=== PATIENT | male | born 1975 | race Hispanic/Latino ===

== ENCOUNTER 2022-08-13 09:56 | Emergency (ER) | payer BC ==
[2022-08-13] MEDS ORDERED: dexAMETHasone 10 MG/ML VIAL ONE (10:29)
[2022-08-13] MEDS ORDERED: KETOROLAC 30 MG/ML INJ ONE (10:29)
[2022-08-13 10:58] LABS: Absolute Lymphocytes (CBC) 1.6 K/uL (0.7-4.9); Hematocrit 43.7 % (39.6-49.0); MCV 95.9 fL (80-100); MPV 8.2 fL (7.6-11.3); RBC Red Blood Cell Count 4.56 M/uL (4.33-5.43)
[2022-08-13 11:15] LABS: Uric Acid 6.4 mg/dL (3.5-7.2)
--- NOTE | 2022-08-13 11:58 | ER ---
Nurse's Notes [facility] Name: Elliot Alexander Age: 47 yrs Sex: Male : 1975 Arrival Date: 08/13/2022 Time: 09:58 Bed 19 Private MD: Diagnosis: Pain in right foot Presentation: 08/13 10:02 Chief complaint: Patient states: pain, redness to right foot X 1 month, he was seen by iw a foot doctor and was put on allopurinol and indomethacin and it has not gotten better. Coronavirus screen: At this time, the client does not indicate any symptoms associated with coronavirus-19. Ebola Screen: Patient negative for fever greater than or equal to 101.5 degrees Fahrenheit, and additional compatible Ebola Virus Disease symptoms Patient denies exposure to infectious person. Patient denies travel to an Ebola-affected area in the 21 days before illness onset. No symptoms or risks identified at this time. Initial Sepsis Screen: Does the patient meet any 2 criteria? No. Patient's initial sepsis screen is negative. Does the patient have a suspected source of infection? No. Patient's initial sepsis screen is negative. Risk Assessment: Do you want to hurt yourself or someone else? Patient reports no desire to harm self or others. Onset of symptoms was June 2022. 10:02 Method Of Arrival: Wheelchair iw 10:02 Acuity: LULA 4 iw 11:21 Acuity: LULA 3 iw Historical: - Allergies: 10:04 No Known Allergies; iw - Home Meds: 10:04 None [Active]; iw - PMHx: 10:04 None; iw - PSHx: 10:04 left ankle; iw - Immunization history:: Adult Immunizations not up to date. - Social history:: Smoking status: unknown. Screenin:47 [facility] ED Fall Risk Assessment (Adult) History of falling in the last 3 months, kr3 including since admission No falls in past 3 months (0 pts) Confusion or Disorientation No (0 pts) Intoxicated or Sedated No (0 pts) Impaired Gait Yes (1 pt) Mobility Assist Device Used Yes (1 pt) Altered Elimination No (0 pt) Score/Fall Risk Level 0 - 2 = Low Risk Oriented to surroundings, Maintained a safe environment, Educated pt \T\ family on fall prevention, incl call for assistance when getting out of bed, Assessed \T\ reinforced patient's understanding of fall precautions, Hourly rounding (assess needs \T\ fall precautionary measures) done. Abuse screen: Denies threats or abuse. Nutritional screening: No deficits noted. Tuberculosis screening: No symptoms or risk factors identified. Assessment: 10:42 General: Appears in no apparent distress. uncomfortable, Behavior is calm, cooperative, kr3 appropriate for age. Pain: Complains of pain in right foot. Neuro: Level of Consciousness is awake, alert, obeys commands, Oriented to person, place, time, situation. Cardiovascular: Patient's skin is warm and dry. Respiratory: Airway is patent Respiratory effort is even, unlabored, Respiratory pattern is regular, symmetrical. GI: No signs and/or symptoms were reported involving the gastrointestinal system. : No signs and/or symptoms were reported regarding the genitourinary system. EENT: No signs and/or symptoms were reported regarding the EENT system. Derm: No signs and/or symptoms reported regarding the dermatologic system. Musculoskeletal: Reports pain in right foot. Vital Signs: 10:02 BP 126 / 87; Pulse 79; Resp 16; Temp 98.0(TE); Pulse Ox 100% on R/A; Weight 95.25 kg; iw Height 5 ft. 8 in. (172.72 cm); Pain 10/10; 10:02 Body Mass Index 31.93 (95.25 kg, 172.72 cm) ED Course: 09:58 Patient arrived in ED. as 09:58 Cassius Barnes PA is [facility] 09:58 Reji Garcia MD is Attending Physician. [facility] 10:04 Triage completed. iw 10:04 Arm band placed on. iw 10:05 Bed in low position. Call light in reach. Side rails up X 1. kr3 10:21 Lavern Daniel, KALEN is Primary Nurse. kr3 10:41 Inserted saline lock: 22 gauge in right antecubital area, using aseptic technique. kr3 Blood collected. 12:15 IV discontinued, intact, bleeding controlled, No redness/swelling at site. Pressure kr3 dressing applied. 13:47 No provider procedures requiring assistance completed. kr3 Administered Medications: 10:40 Drug: Ketorolac 30 mg Route: IVP; Site: right antecubital; kr3 11:15 Follow up: Response: No adverse reaction kr3 10:40 Drug: Decadron - Dexamethasone 10 mg Route: IVP; Site: right antecubital; kr3 11:15 Follow up: Response: No adverse reaction kr3 Medication: 13:49 VIS not applicable for this client. kr3 Outcome: 11:58 Discharge ordered by . cortney 12:25 Patient left the ED. kr3 13:48 Discharged to home with crutches. kr3 13:48 Condition: stable 13:48 Discharge instructions given to patient, Instructed on discharge instructions, follow up and referral plans. medication usage, Demonstrated understanding of instructions, follow-up care, medications, Prescriptions given X 2. Signatures: Cassius Barnes PA PA jmm Martinez, Amelia as Williams, Irene, Lavern Gongora RN, RN RN kr3
--- NOTE | 2022-08-13 11:58 | EDPHYS ---
Physician Documentation [facility] Name: Elliot Alexander Age: 47 yrs Sex: Male : 1975 Arrival Date: 08/13/2022 Time: 09:58 Bed 19 Private MD: ED Physician Reji Garcia HPI: 08/13 11:53 This 47 yrs old Male presents to ER via Wheelchair with complaints of Foot jmm Injury. 11:53 The patient presents with pain. The complaints affect the dorsum of right foot. Onset: jmm The symptoms/episode began/occurred just prior to arrival, 1 month(s) ago. Is a 47-year-old male with no known chronic medical conditions presents emerged part with complaints of ongoing right lower foot pain began approximately month ago. Patient was prescribed allopurinol and indomethacin by podiatry. Patient states he did not tolerate the indomethacin well and only took 1 dose. Patient is still currently taking the allopurinol with continued pain. Denies fever. Denies known injury to the extremity.. Historical: - Allergies: 10:04 No Known Allergies; iw - Home Meds: 10:04 None [Active]; iw - PMHx: 10:04 None; iw - PSHx: 10:04 left ankle; iw - Immunization history:: Adult Immunizations not up to date. - Social history:: Smoking status: unknown. ROS: 11:53 Constitutional: Negative for fever, chills, and weight loss, Cardiovascular: Negative jmm for chest pain, palpitations, and edema, Respiratory: Negative for shortness of breath, cough, wheezing, and pleuritic chest pain. 11:53 MS/extremity: Positive for pain. 11:53 All other systems are negative. Exam: 11:53 Constitutional: This is a well developed, well nourished patient who is awake, alert, jmm and in no acute distress. Head/Face: atraumatic. Eyes: EOMI, no conjunctival erythema appreciated ENT: Moist Mucus Membranes Neck: Trachea midline, Supple Chest/axilla: Normal chest wall appearance and motion. Cardiovascular: Regular rate and rhythm. No edema appreciated Respiratory: Normal respirations, no respiratory distress appreciated Abdomen/GI: Non distended Back: Normal ROM 11:53 Musculoskeletal/extremity: Swelling noted to the right foot, compartments are soft, full dorsalis pedis pulse, neurovascular tact. 11:53 Skin: Mild erythema noted to the right lower extremity, right foot. 11:53 Neuro: Orientation: is normal, Mentation: is normal, Memory: is normal. 11:53 Psych: Behavior/mood is pleasant, cooperative. Vital Signs: 10:02 BP 126 / 87; Pulse 79; Resp 16; Temp 98.0(TE); Pulse Ox 100% on R/A; Weight 95.25 kg; iw Height 5 ft. 8 in. (172.72 cm); Pain 10; 10:02 Body Mass Index 31.93 (95.25 kg, 172.72 cm) iw MDM: 10:11 Patient medically screened. [facility] 11:50 Data reviewed: vital signs, nurses notes. [facility] 11:57 Data reviewed: lab test result(s). I considered the following discharge prescriptions jm or medication management in the emergency department Medications were administered in the Emergency Department. See MAR. Test considered but Not performed: X-ray: X-ray previously done by podiatry. Counseling: I had a detailed discussion with the patient and/or guardian regarding: the historical points, exam findings, and any diagnostic results supporting the discharge/admit diagnosis, lab results, the need for outpatient follow up, to return to the emergency department if symptoms worsen or persist or if there are any questions or concerns that arise at home. ED course: Patient's pain is alleviated in the ED with IV ketorolac and dexamethasone. Patient advised to follow-up with podiatry for reevaluation otherwise given strict return precautions. Patient understood and agrees to plan of care. Patient also advised to discontinue use of allopurinol. Patient understood and agrees plan of care.. 08/13 10:20 Order name: CBC with Diff; Complete Time: 11:17 [facility] 08/13 10:20 Order name: BMP; Complete Time: 11: [facility] 08/13 10:20 Order name: Saline Lock; Complete Time: 10:41 [facility] 08/13 10:20 Order name: Uric Acid; Complete Time: 11: [facility] Administered Medications: 10:40 Drug: Ketorolac 30 mg Route: IVP; Site: right antecubital; kr3 11:15 Follow up: Response: No adverse reaction kr3 10:40 Drug: Decadron - Dexamethasone 10 mg Route: IVP; Site: right antecubital; kr3 11:15 Follow up: Response: No adverse reaction kr3 Disposition: 14:36 Co-signature as Attending Physician, Reji Garcia MD I reviewed the patient's care rt provided by the Advanced Practice Provider and agree with the diagnosis and treatment plan. Disposition Summary: 08/13/22 11:58 Discharge Ordered Location: Home [facility] Condition: Stable [facility] Diagnosis - Pain in right foot [facility] Followup: [facility] - With: Private Physician - When: 2 - 3 days - Reason: Recheck today's complaints, Continuance of care, Re-evaluation by your physician Discharge Instructions: - Discharge Summary Sheet [facility] - Gout [facility] Forms: - Medication Reconciliation Form [facility] - Thank You Letter [facility] - Antibiotic Education [facility] - Prescription Opioid Use [facility] Prescriptions: - ketorolac 10 mg Oral tablet - take 1 tablet by ORAL route every 4-6 hours for 5 days not to exceed 40mg in jmm 24hrs for up to 5 days total use; 20 tablet; Refills: 0, Product Selection Permitted - Pepcid 20 mg Oral Tablet - take 1 tablet by ORAL route every 12 hours for 10 days; 20 tablet; Refills: 0, [facility] Product Selection Permitted Signatures: Dispatcher [employer] EDCassius Moon PA PA [facility] Genesis Degroot RN RN iw Lavern Daniel RN RN kr3 Reji Garcia MD MD rt
[2022-08-13 12:50] VITALS: BP 126/87; TEMP 98; O2SAT 100
== END 2022-08-13 12:25 | disposition home or self-care (01) ==
LOC: ER 09:56
DX: M79.671 Pain in right foot (principal)
CPT/HCPCS: 85025; 80048; 36415; 84550; 96375; 96374; 99284; J1100

== ENCOUNTER 2023-05-31 12:55 | Emergency (ER) | payer OTHER ==
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
[2023-05-31] MEDS ORDERED: KETOROLAC 30 MG/ML INJ ONE (14:00)
[2023-05-31 17:36] VITALS: BP 136/93; TEMP 98.4; O2SAT 100
== END 2023-05-31 13:58 | disposition home or self-care (01) ==
LOC: ER 12:55
DX: M54.2 Cervicalgia (principal); R51.9 Headache, unspecified; M54.50 Low back pain, unspecified; V49.49XA Driver injured in collision with other motor vehicles in traffic accident, initial encounter
CPT/HCPCS: 70450; 72125; 96372; 99285

== ENCOUNTER 2024-04-22 07:00 | Emergency (ER) | payer BC ==
[2024-04-22] MEDS ORDERED: KETOROLAC 30 MG/ML INJ ONE (08:46)
[2024-04-22] MEDS ORDERED: predniSONE 20 MG TAB ONE (08:46)
--- NOTE | 2024-04-22 10:09 | RAD REPORT ---
EXAMINATION: XR RIGHT FOOT CLINICAL INDICATION: Male, 48 years old. PAIN TECHNIQUE: Multiple views of the right foot were obtained. COMPARISON: No prior exam. FINDINGS: Mild metatarsus primus adductus with hallux valgus noted. No fracture, dislocation or aggr essive bone lesion. Small erosion involving the first metatarsal head medially would be suggestive of underlying gout.
--- NOTE | 2024-04-22 10:33 | EDPHYS ---
Physician Documentation [facility] Name: Elliot Alexander Age: 48 yrs Sex: Male : 1975 Arrival Date: 04/22/2024 Time: 07:00 Bed 20 Private MD: ED Physician Rafael Alfaro HPI: 04/22 18:43 This 48 yrs old Male presents to ER via Wheelchair with complaints of Foot ms3 Pain. 18:43 48-year-old male with past medical history of gout presents to the emergency department ms3 for right foot pain that he describes as throbbing and shooting. Patient states the pain became worse yesterday afternoon. Patient states the pain is worse with touching his foot. Patient states he has dealt with this pain for the last 15 years. Patient recently 1 month ago was given gout medications for an episode. Historical: - Allergies: 07:17 No Known Allergies; iw - Home Meds: 07:17 allopurinol 100 mg oral tablet daily [Active]; iw - PMHx: 07:17 Gout; iw - PSHx: 07:17 Left ankle; iw - Immunization history:: Adult Immunizations not up to date. - Infectious Disease History:: Denies. - Social history:: Smoking status: Patient denies any tobacco usage or history of. ROS: 18:43 MS/extremity: Positive for pain, of the right foot, ms3 18:43 Constitutional: Negative for fever, and chills. Cardiovascular: Negative for chest pain, and palpitations. Respiratory: Negative for shortness of breath, cough, wheezing, and pleuritic chest pain, Abdomen/GI: Negative for abdominal pain, nausea, vomiting, diarrhea, and constipation, Exam: 18:43 Constitutional: This is a well developed, well nourished patient who is awake, alert, ms3 and in no acute distress. Cardiovascular: Regular rate and rhythm with a normal S1 and S2. No gallops, murmurs, or rubs. Normal PMI, no JVD. No pulse deficits. Respiratory: Lungs have equal breath sounds bilaterally, clear to auscultation and percussion. No rales, rhonchi or wheezes noted. No increased work of breathing, no retractions or nasal flaring. Abdomen/GI: Soft, non-tender, with normal bowel sounds. No distension or tympany. No guarding or rebound. No evidence of tenderness throughout. 18:43 Musculoskeletal/extremity: Extremities: noted in the right foot: pain, tenderness, Vital Signs: 07:16 BP 109 / 91; Pulse 56; Resp 16; Pulse Ox 100% on R/A; Weight 90.72 kg; Height 5 ft. 8 iw in. ; Pain 10/10; 08:30 BP 118 / 80; Pulse 57; Resp 18; Pulse Ox 99% on R/A; db 09:30 BP 100 / 67; Pulse 53; Resp 18; Pulse Ox 97% on R/A; db 11:00 BP 101 / 80; Pulse 56; Resp 18; Pulse Ox 95% on R/A; db 07:16 Body Mass Index 30.41 (90.72 kg, 172.72 cm) iw 07:16 Pain Scale: Adult iw MDM: 08:08 Medical Screening Exam initiated ms3 18:43 Differential diagnosis: fracture, sprain, gout. Data reviewed: vital signs, nurses ms3 notes, radiologic studies, and as a result, I will discharge patient. I considered the following discharge prescriptions or medication management in the emergency department Medications were administered in the Emergency Department. See MAR. Independent interpretation of the following test(s) in the Emergency Department X-Ray: My interpretation is Right foot x-ray reviewed at time of visit did not reveal fracture. Counseling: I had a detailed discussion with the patient and/or guardian regarding the historical points, exam findings, and any diagnostic results supporting the discharge/admit diagnosis, radiology results, the need for outpatient follow up, to return to the emergency department if symptoms worsen or persist or if there are any questions or concerns that arise at home. Special discussion: I discussed with the patient/guardian in detail that at this point there is no indication for admission to the hospital. It is understood, however, that if the symptoms persist or worsen the patient needs to return immediately for re-evaluation. ED course: Patient took his own colchicine and an additional 0.6 mg given 1 hour after he took his home dose. Patient states Medrol Dosepak improved his symptoms during the last episode so Medrol Dosepak prescribed. Patient to follow-up with Dr. Medrano in 2 to 3 days. Patient understands agrees with plan. All questions were answered. Return precautions discussed include fevers, chills, worsening symptoms, or any other concerns. 04/22 08:07 Order name: Foot Right 3 View XRAY; Complete Time: 10:22 ms3 Administered Medications: 08:45 Drug: Ketorolac IM 15 mg IM once Route: IM; Site: right deltoid; db 10:48 Follow up: Response: No adverse reaction; Pain is decreased db 08:56 Drug: predniSONE PO 40 mg PO once Route: PO; db 10:48 Follow up: Response: No adverse reaction db 10:43 Drug: colchicine 0.6 mg 0.6 mg PO once Route: PO; db 11:15 Follow up: Response: No adverse reaction db Disposition Summary: 04/22/24 10:32 Discharge Ordered Notes: Location: Home ms3 Condition: Stable ms3 Diagnosis - Gout, unspecified ms3 - Pain in right foot ms3 Followup: ms3 - With: Ruslan Medrano DPM - When: 2 - 3 days - Reason: Re-evaluation by your physician Discharge Instructions: - Discharge Summary Sheet ms3 - Musculoskeletal Pain ms3 Forms: - Work release form ms3 - Medication Reconciliation Form ms3 - Antibiotic Education ms3 - Prescription Opioid Use ms3 - Patient Portal Instructions ms3 - Leadership Thank You Letter ms3 Prescriptions: - colchicine 0.6 mg Oral tablet - take 1 tablet ORAL route daily; 15 tablet; Refills: 0, Product Selection ms3 Permitted - Medrol (Juan M) 4 mg Oral Tablets, Dose Pack - take 1 tablet ORAL route as directed - follow package instructions; 1 packet; ms3 Refills: 0, Product Selection Permitted Signatures: Dispatcher [employer] Genesis West RN RN iw Sims, Marcus, DO DO ms3 Romy Martinez RN RN db
--- NOTE | 2024-04-22 10:33 | ER ---
Nurse's Notes [facility] Name: Elliot Alexander Age: 48 yrs Sex: Male : 1975 Arrival Date: 04/22/2024 Time: 07:00 Bed 20 Private MD: Diagnosis: Gout, unspecified;Pain in right foot Presentation: 04/22 07:16 Chief complaint: Patient states: right foot pain since yesterday , no injury. iw Coronavirus screen: At this time, the client does not indicate any symptoms associated with coronavirus-19. Ebola Screen: Patient positive for the following Ebola Virus Disease associated symptoms:. Initial Sepsis Screen: Does the patient meet any 2 criteria? No. Patient's initial sepsis screen is negative. Does the patient have a suspected source of infection? No. Patient's initial sepsis screen is negative. Risk Assessment: Do you want to hurt yourself or someone else? Patient reports no desire to harm self or others. Onset of symptoms was April 21, 2024. 07:16 Method Of Arrival: Wheelchair iw 07:16 Acuity: LULA 4 iw Historical: - Allergies: 07:17 No Known Allergies; iw - Home Meds: 07:17 allopurinol 100 mg oral tablet daily [Active]; iw - PMHx: 07:17 Gout; iw - PSHx: 07:17 Left ankle; iw - Immunization history:: Adult Immunizations not up to date. - Infectious Disease History:: Denies. - Social history:: Smoking status: Patient denies any tobacco usage or history of. Screenin:16 [facility] ED Fall Risk Assessment (Adult) History of falling in the last 3 months, db including since admission No falls in past 3 months (0 pts) Confusion or Disorientation No (0 pts) Intoxicated or Sedated No (0 pts) Impaired Gait No (0 pts) Mobility Assist Device Used No (0 pt) Altered Elimination No (0 pt) Score/Fall Risk Level 0 - 2 = Low Risk Oriented to surroundings, Maintained a safe environment. Abuse screen: Denies threats or abuse. Denies injuries from another. Nutritional screening: No deficits noted. Tuberculosis screening: No symptoms or risk factors identified. Assessment: 08:30 Reassessment: Patient appears in no apparent distress at this time. Patient and/or db family updated on plan of care and expected duration. Pain level reassessed. Patient is alert, oriented x 3, equal unlabored respirations, skin warm/dry/pink. General: Appears in no apparent distress. comfortable, Behavior is calm, cooperative. Neuro: Level of Consciousness is awake, alert, obeys commands, Oriented to person, place, time, situation. Respiratory: Airway is patent Respiratory effort is even, unlabored, Respiratory pattern is regular, symmetrical. 08:30 Pain: Complains of pain in right foot. db 09:30 Reassessment: Patient appears in no apparent distress at this time. Patient and/or db family updated on plan of care and expected duration. Pain level reassessed. Patient is alert, oriented x 3, equal unlabored respirations, skin warm/dry/pink. 10:30 Reassessment: Patient appears in no apparent distress at this time. Patient and/or db family updated on plan of care and expected duration. Pain level reassessed. Patient is alert, oriented x 3, equal unlabored respirations, skin warm/dry/pink. 11:16 Reassessment: Patient appears in no apparent distress at this time. Patient and/or db family updated on plan of care and expected duration. Pain level reassessed. Patient is alert, oriented x 3, equal unlabored respirations, skin warm/dry/pink. General: Appears in no apparent distress. comfortable, Behavior is calm, cooperative. Vital Signs: 07:16 BP 109 / 91; Pulse 56; Resp 16; Pulse Ox 100% on R/A; Weight 90.72 kg; Height 5 ft. 8 iw in. ; Pain 10/10; 08:30 BP 118 / 80; Pulse 57; Resp 18; Pulse Ox 99% on R/A; db 09:30 BP 100 / 67; Pulse 53; Resp 18; Pulse Ox 97% on R/A; db 11:00 BP 101 / 80; Pulse 56; Resp 18; Pulse Ox 95% on R/A; db 07:16 Body Mass Index 30.41 (90.72 kg, 172.72 cm) iw 07:16 Pain Scale: Adult iw ED Course: 07:04 Patient arrived in ED. gm2 07:16 Rafael Alfaro DO is Attending Physician. ms3 07:17 Triage completed. iw 07:18 Arm band placed on. iw 07:42 Romy Martinez, KALEN is Primary Nurse. db 09:47 Foot Right 3 View XRAY In Process Unspecified. EDMS 10:32 Ruslan Medrano DPM is Referral Physician. ms3 11:17 Patient has correct armband on for positive identification. Bed in low position. Call db light in reach. Side rails up X 1. Provided Education on: DISCHARGE AND FOLLOWUP. Pulse ox on. NIBP on. Warm blanket given. Pillow given. 11:17 No provider procedures requiring assistance completed. Patient did not have IV access db during this emergency room visit. 11:23 Crutch training done. db Administered Medications: 08:45 Drug: Ketorolac IM 15 mg IM once Route: IM; Site: right deltoid; db 10:48 Follow up: Response: No adverse reaction; Pain is decreased db 08:56 Drug: predniSONE PO 40 mg PO once Route: PO; db 10:48 Follow up: Response: No adverse reaction db 10:43 Drug: colchicine 0.6 mg 0.6 mg PO once Route: PO; db 11:15 Follow up: Response: No adverse reaction db Medication: 11:16 VIS not applicable for this client. db Outcome: 10:32 Discharge ordered by . ms3 11:17 Discharged to home ambulatory, db 11:17 Condition: stable 11:17 Discharge instructions given to patient, Instructed on discharge instructions, follow up and referral plans. Prescriptions given X 2, 11:18 Patient left the ED. db Signatures: Dispatcher [employer] EDMS Genesis Degroot RN RN iw Rafael Alfaro DO DO ms3 Romy Martinez RN RN db Kimberly Moran gm2 Corrections: (The following items were deleted from the chart) 11:17 08:30 Reassessment: Patient appears in no apparent distress at this time. Patient db and/or family updated on plan of care and expected duration. Pain level reassessed. Patient is alert, oriented x 3, equal unlabored respirations, skin warm/dry/pink. db 11:17 11:17 Pain: Complains of pain in right foot db db
[2024-04-22] MEDS ORDERED: COLCHICINE 0.6 MG TAB ONE (10:40)
[2024-04-22 11:26] VITALS: BP 101/80; O2SAT 95
== END 2024-04-22 11:18 | disposition home or self-care (01) ==
LOC: ER 07:00
DX: M10.9 Gout, unspecified (principal)
CPT/HCPCS: 73630; J7512; 96372; 99284